=== PATIENT | female | born 1960 | race Caucasian/White ===

== ENCOUNTER → 2020-08-27 08:53 | Outpatient (CLI) | payer OTHER, SELFPAY ==
--- NOTE | 2020-08-27 08:58 | DI.ECHO.S_ITS ---
[facility]---------+ [facility] +---------+ : : [address] : : : : [id number] : : : : Phone: [phone] Echocardiogram Report + + :Name: BENJY ESPINOZA Study Date: 08/27/2020 Height: 70 in : :[facility] ReadingLocation: Weight: 185 lb : : Gender: Female BSA: 2.0 m2 : :: 1960 Age: 59 yrs BP: 129/100 mmHg: :Reason For Study: Atrial fibrillation : :Ordering Physician: Oriana : :Dede Ballesteros Performed By: Vikas Hansen : :Referring: ORIANA BALLESTEROS : + + Interpretation Summary 1) Normal left ventricular thickness, size, wall motion, and systolic function (EF 55-60%). 2) Normal right ventricular size and function. 3) No significant valvular abnormalities. 4) No prior Echo available for comparison. Procedure: A two-dimensional transthoracic echocardiogram with color flow and Doppler was performed. The study quality was technically adequate. There is no prior echocardiogram noted for this patient. The patient was in sinus rhythm with heart rates between 65-73 bpm during the exam. Left Ventricle: The left ventricle is normal in size and wall thickness. Left ventricular systolic function is normal. The ejection fraction is estimated to be 55-60%. There are no focal wall motion abnormalities. Diastolic parameters suggest probable normal left ventricular diastolic function and normal filling pressures. Right Ventricle: The right ventricle is normal in size and function. Atria: Both atria are normal in size. There is no Doppler evidence for an interatrial shunt. Mitral Valve: The mitral valve is normal in structure and function. There is trace mitral regurgitation. Aortic Valve: The aortic valve is normal in structure and function. There is no aortic valve stenosis. No aortic regurgitation is present. Tricuspid Valve: The tricuspid valve is normal in structure and function. There is mild tricuspid regurgitation. The right ventricular systolic pressure is estimated to be at least 26 mmHg based on an estimated right atrial pressure of 3 mm Hg. Pulmonic Valve: The pulmonic valve is not well seen, but is grossly normal. There is a trace or physiologic amount of pulmonic regurgitation. Great Vessels: The aortic root is normal size. The dimensions of the ascending aorta are normal. The IVC is of normal diameter and collapses greater than 50% with a sniff. This suggests a low right atrial pressure of 3 mm Hg. Pericardium/ Pleura There is no pericardial effusion. There is no pleural effusion. MMode/2D Measurements & Calculations LVIDd: 5.2 cm LVOT diam: 2.1 cm LVIDs: 3.3 cm Ao root diam: 3.1 cm FS: 36.5 % asc Aorta Diam: 3.3 cm IVSd: 0.75 cm LVPWd: 0.71 cm LV dowd. diameter/BSA (cm/m^2): 2.6 LV sys. diameter/BSA (cm/m^2): 1.6 LA A2 area: 19.2 cm2 RA long axis: 5.4 cm LA A4 area: 18.5 cm2 RA area: 17.4 cm2 LA length (vol): 5.5 cm RA vol: 48.1 ml LA vol: 55.2 ml RA : 23.8 ml/m2 LA vol index: 27.3 ml/m2 TAPSE: 2.0 cm Doppler Measurements & Calculations Ao V2 max: 111.6 cm/sec LVOT Max Bk: 100.8 cm/sec Ao V2 mean: 78.2 cm/sec LV V1 max P.1 mmHg Ao max P.0 mmHg LV V1 VTI: 18.9 cm Ao mean P.7 mmHg LIA(I,D): 2.9 cm2 Ao V2 VTI: 21.9 cm LIA(V,D): 3.0 cm2 sev ratio: 0.86 LIA indexed to BSA (cm^2/m^2): 1.4 MV E max bk: 80.3 cm/sec TR max bk: 238.7 cm/sec MV A max bk: 52.3 cm/sec TR max P.8 mmHg MV E/A: 1.5 PA pr(Accel): 49.9 mmHg Med Peak E' Bk: 10.3 cm/sec E/E' med: 7.8 Lat Peak E' Bk: 11.8 cm/sec E/E' lat: 6.8 E/e' average: 7.3 MV dec time: 0.21 sec SV(LVOT): 63.0 ml Reading Physician:10:12 AM
== END ==
PROVIDERS: PCP Family Medicine; Referring Provider Internal Medicine Cardiovascular Disease; Visit Provider Internal Medicine Cardiovascular Disease
DX: I48.19 Other persistent atrial fibrillation (principal); I07.1 Rheumatic tricuspid insufficiency
CPT/HCPCS: 93306

== ENCOUNTER 2020-09-28 10:09 | Emergency (ER) | payer OTHER, SELFPAY ==
[2020-09-28] VITALS (31 sets, daily range): BP systolic 111–148; BP diastolic 58–95; PULSE 72–155; RESP 12–42; TEMP 36.2; O2SAT 83–100
--- NOTE | 2020-09-28 10:37 | DI.RAD.S_ITS ---
PROCEDURE: XR CHEST 1V INDICATIONS: chest pain TECHNIQUE: One view of the chest was acquired. COMPARISON: None. FINDINGS: Surgical changes and devices: None. Lungs and pleura: Lungs are clear. No pleural effusions or pneumothorax. Mediastinum: Mediastinal contours appear normal. Heart size is normal. Bones and chest wall: No suspicious bony lesions. Overlying soft tissues appear unremarkable. IMPRESSION: No acute cardiopulmonary disease. Dictated by: Isiah Duong M.D. on 09/28/2020 at 11:25 Approved by: Isiah Duong M.D. on 09/28/2020 at 11:26
[2020-09-28 10:48] LABS: Add Manual Diff / Slide Review NO; Basophils Absolute Auto 100 /uL (0-100); Eosinophils Absolute Auto 200 /uL (0-450); Eosinophils Percent Auto 2.7 % (2-4); Hemoglobin 15.6 g/dL (12.0-16.0); Lymphocytes Absolute Auto 2000 /uL (1100-4500); Lymphocytes Percent Auto 31.5 % (25-40); Mean Corpuscular HGB Conc 33.3 % (30-36); Mean Corpuscular Hemoglobin 32.9 PG (26-34); Monocytes Absolute Auto 500 /uL (0-900); Monocytes Percent Auto 8.7 % (3-14); Neutrophils Absolute Auto 3500 /uL (1500-7000); Neutrophils Percent Auto 56.1 % (50-75); Platelet Count 385 X10^3/uL (150-400); Red Blood Cell Count 4.75 X10^6/uL (4.0-5.2); Red Cell Distribution Width 13.3 % (11.6-14.8); White Blood Cell Count 6.3 X10^3/uL (4.5-11.0)
[2020-09-28 10:52] LABS: Alanine Aminotransferase 31 IU/L (<35); Albumin 4.9 g/dL (3.5-5.0); Albumin Globulin Ratio 1.4 (1.0-2.8); Alkaline Phosphatase 108 U/L (38-126); Aspartate Aminotransferase 43 IU/L (14-36); BUN Creatinine Ratio 17.7 (6-22); Blood Urea Nitrogen 14 mg/dL (7-17); Carbon Dioxide 26 mmol/L (22-32); Chloride 102 mmol/L (98-107); Creatine Kinase 55 U/L (30-135); Estimated Glomerular Filt Rate > 60.0 mL/min (>60); Globulin 3.4 g/dL (1.7-4.1); Glucose 113 mg/dL (80-110); HEMOLYSIS < 15 (0-50); Lipase 163 U/L (23-300); Magnesium 2.3 mg/dL (1.6-2.3); Potassium 4.1 mmol/L (3.4-5.1); Sodium 139 mmol/L (137-145); Total Protein 8.3 g/dL (6.3-8.2)
[2020-09-28 11:04] LABS: NT-proBNP (BNP-Adult 18+) 2020 pg/mL (<125); Troponin I < 0.012 ng/mL (0.01-0.034)
[2020-09-28] MEDS: ASPIRIN 81 MG CHEW TAB 324 MG PO (11:19)
[2020-09-28] MEDS: SODIUM CHLORIDE 0.9% 1,000 ML 1000 ML IV (11:19)
[2020-09-28 11:26] LABS: TSH w/ Reflex to FT4 0.53 uIU/mL (0.47-4.68)
--- NOTE | 2020-09-28 12:13 | ED.ARRPALP ---
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 Patient went to sleep open she would cardiovert overnight but continued to have an elevated heart rate. She noted she felt a little bit of chest pressure and shortness of breath particularly when she is walking around. She felt lightheadedness had possible near syncopal episode but no syncope. She denies any new swelling in her extremities. She denies any diaphoresis, no nausea vomiting or other GI or urinary symptoms. Patient states she had her diltiazem increased from 180 mg to 240 in the last 2 months. She also notes that she had a resection in the past month for a volvulus. During that episode she did not have any atrial fibrillation events. Patient states she typically gets an event once every 3 months she has had 2 in the last 3 months. 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 She denies any other new medication changes. She is allergic to Pradaxa and has anaphylactic type symptoms. She is also allergic to sulfa. She denies any tobacco, rare alcohol no illicit. Dr. Ballesteros is her speeder frame tender. Related Data Allergies Allergy/AdvReac Type Severity Reaction Status Date / Time dabigatran etexilate Allergy Verified 09/28/20 11:54 [From Pradaxa] Sulfa (Sulfonamide Allergy Verified 09/28/20 11:54 Antibiotics) Review of Systems Review of Systems ROS Unobtainable: All systems reviewed & are unremarkable except as noted in HPI and below Patient History Social History Smoking Status: Current some day smoker Smoking Status: Current some day smoker tobacco type: cigarettes alcohol intake frequency: 0-2 drinks per day Substance Use Type: does not use Exam Narrative Exam Narrative: GENERAL: Alert and oriented x three, well-appearing female in mild distress. HEENT: Head normocephalic, atraumatic, EOMI, pupils reactive, face symmetric, moist mucous membranes NECK: Supple, full range of motion CARDIOVASCULAR: Started irregularly regular rate and rhythm without murmurs, rubs or gallops. No JVD. No swelling bilateral lower extremities. RESPIRATORY: Breath sounds equal bilaterally, no wheezes rales or rhonchi. No tachypnea accessory muscle use. ABDOMEN: Soft, nontender. Normoactive bowel sounds all 4 quadrants. No guarding or rebound, rigidity, no mass : No CVA tenderness EXTREMITIES: Normal range of motion, no clubbing or edema. Neurovascularly intact NEUROLOGICAL: Cranial nerves II through XII grossly intact. Moving all extremities SKIN: Warm, dry, no petechiae, no rashes or lesions. Initial Vital Signs Initial Vital Signs: Vital Signs Temperature 97.1 F L 09/28/20 10:25 Pulse Rate 155 H 09/28/20 10:25 Respiratory Rate 22 09/28/20 10:25 Blood Pressure 111/78 09/28/20 10:25 Pulse Oximetry 99 09/28/20 10:25 Scores GCS Aristeo coma scale eye opening: Spontaneous Aristeo coma scale verbal response: Orientated Aristeo coma scale motor response: Obey commands Aristeo coma scale total score: 15 Course Orders Ordered: ED Orders 09/28/20 13:15 D Dimer Stat 09/28/20 14:15 CT angio chest PE protocol Stat 09/28/20 15:10 COVID19 - ADMIT (ASSET PROTECTION MANAGER swab/PCR) Stat 09/28/20 17:49 EKG-12 Lead Stat Discontinued Medications Aspirin (Aspirin 81 Mg Chew Tab) 324 mg PO NOW ONE Stop: 09/28/20 10:37 Last Admin: 09/28/20 11:19 Dose: 324 mg Documented by: CTRKATERINA Diltiazem HCl (Diltiazem 5 Mg/Ml Sdv) 10 mg IV NOW ONE Stop: 09/28/20 12:48 Last Admin: 09/28/20 12:53 Dose: 10 mg Documented by: TYLOR Enoxaparin Sodium (Enoxaparin 100 Mg/Ml Syringe) 83 mg SUBCUT NOW ONE Stop: 09/28/20 15:46 Last Admin: 09/28/20 15:42 Dose: 83 mg Documented by: TYLOR Flecainide Acetate (Flecainide 100 Mg Tablet) 100 mg PO NOW ONE Stop: 09/28/20 16:31 Last Admin: 09/28/20 16:46 Dose: 100 mg Documented by: CTR.CALLI Sodium Chloride (Normal Saline 0.9%) 1,000 mls @ 1,000 mls/hr IV BOLUS ONE Stop: 09/28/20 11:36 Last Infusion: 09/28/20 12:38 Dose: 0 mls/hr Documented by: CTR.CALLI Admin: 09/28/20 11:19 Dose: 1,000 mls/hr Documented by: CTR.CALLI Sodium Chloride (Normal Saline 0.9%) 1,000 mls @ 150 mls/hr IV CONT JARED Last Infusion: 09/28/20 18:42 Dose: 0 mls/hr Documented by: CTR.CALLI Admin: 09/28/20 12:56 Dose: 150 mls/hr Documented by: CTR.CALLI Diltiazem HCl 125 mg/ Sodium (Chloride) 125 mls @ 5 mls/hr IV TITRATE JARED; Protocol Last Titration: 09/28/20 18:42 Dose: 0 mg/hr, 0 mls/hr Documented by: CTR.CALLI Admin: 09/28/20 14:47 Dose: 5 mg/hr, 5 mls/hr Documented by: CTR.CALLI Consultations Consultation #1: Dr. Ballesteros, recommend increasing patient's diltiazem to 360 mg daily as an outpatient. Recommends dose of Lovenox 1 floresita per kg subcutaneously. Adding flecainide 100 mg. He will also send a prescription for Eliquis to [facility]'s for the patient. If patient does not cardiovert after flecainide given here in the department 1 hour after Lovenox he would recommend electrical cardioversion. Vital Signs Vital signs: Vital Signs - 8 hr 09/28/20 12:46 09/28/20 13:00 09/28/20 13:15 Pulse Rate 122 H 111 H 90 Respiratory Rate 12 22 17 Blood Pressure 126/73 127/68 125/73 Pulse Oximetry 100 100 99 09/28/20 13:30 09/28/20 13:45 09/28/20 14:00 Pulse Rate 89 98 H 105 H Respiratory Rate 20 13 19 Blood Pressure 120/70 135/83 Pulse Oximetry 99 99 99 09/28/20 14:15 09/28/20 14:37 09/28/20 14:38 Pulse Rate 109 H 113 H 116 H Respiratory Rate 12 27 H Blood Pressure 137/77 143/95 H Pulse Oximetry 100 85 L 93 09/28/20 14:45 09/28/20 15:00 09/28/20 15:01 Pulse Rate 143 H 121 H 127 H Respiratory Rate 13 12 14 Blood Pressure 137/63 138/69 Pulse Oximetry 100 100 96 09/28/20 15:15 09/28/20 15:30 09/28/20 15:46 Pulse Rate 124 H 116 H 120 H Respiratory Rate 31 H 25 H 42 H Blood Pressure 120/63 120/66 131/67 Pulse Oximetry 99 99 99 09/28/20 16:00 09/28/20 16:15 09/28/20 16:30 Pulse Rate 113 H 117 H 115 H Respiratory Rate 14 13 15 Blood Pressure 130/71 133/80 138/84 Pulse Oximetry 99 99 99 09/28/20 16:45 09/28/20 17:00 09/28/20 17:01 Pulse Rate 116 H 124 H 123 H Respiratory Rate 24 20 16 Blood Pressure 141/64 H 148/83 H Pulse Oximetry 98 98 99 09/28/20 17:15 09/28/20 17:30 09/28/20 17:45 Pulse Rate 117 H 119 H 121 H Respiratory Rate 17 12 19 Blood Pressure 124/58 L 120/64 139/73 Pulse Oximetry 99 98 93 09/28/20 18:00 09/28/20 18:01 09/28/20 18:15 Pulse Rate 72 74 73 Respiratory Rate 28 H 27 H 23 Blood Pressure 120/72 119/70 Pulse Oximetry 98 99 98 MDM - Arrhythmia/Palpitations Lab Data Attestation: I reviewed the patient's lab results. Result diagrams: 09/28/20 10:25 09/28/20 10:25 Labs: Lab Results 09/28/20 09/28/20 09/28/20 Range/Units 10:25 10:25 10:25 WBC 6.3 (4.5-11.0) X10^3/uL RBC 4.75 (4.0-5.2) X10^6/uL Hgb 15.6 (12.0-16.0) g/dL Hct 47.0 H (36-46) % MCV 99.0 (80-100) fL MCH 32.9 (26-34) PG MCHC 33.3 (30-36) % RDW 13.3 (11.6-14.8) % Plt Count 385 (150-400) X10^3/uL Neut % (Auto) 56.1 (50-75) % Lymph % (Auto) 31.5 (25-40) % [place] % (Auto) 8.7 (3-14) % Eos % (Auto) 2.7 (2-4) % Baso % (Auto) 1.0 (0-2) % Neut # (Auto) 3500 (6967-4367) /uL Lymph # (Auto) 2000 (6159-2730) /uL [place] # (Auto) 500 (0-900) /uL Eos # (Auto) 200 (0-450) /uL Baso # (Auto) 100 (0-100) /uL D-Dimer (<230) ng/mL Sodium 139 (137-145) mmol/L Potassium 4.1 (3.4-5.1) mmol/L Chloride 102 (98-107) mmol/L Carbon Dioxide 26 (22-32) mmol/L BUN 14 (7-17) mg/dL Creatinine 0.79 (0.52-1.04) mg/dL Estimated GFR > 60.0 (>60) mL/min BUN/Creatinine Ratio 17.7 (6-22) Glucose 113 H (80-110) mg/dL Calcium 10.0 (8.4-10.2) mg/dL Magnesium 2.3 (1.6-2.3) mg/dL Total Bilirubin 1.0 (0.2-1.3) mg/dL AST 43 H (14-36) IU/L ALT 31 (<35) IU/L Alkaline Phosphatase 108 (38-126) U/L Total Creatine Kinase 55 (30-135) U/L CK-MB (CK-2) TNP CK-MB (CK-2) Rel Index TNP Troponin I < 0.012 (0.01-0.034) ng/mL NT-Pro-B Natriuret Pep 2020 H (<125) pg/mL Total Protein 8.3 H (6.3-8.2) g/dL Albumin 4.9 (3.5-5.0) g/dL Globulin 3.4 (1.7-4.1) g/dL Albumin/Globulin Ratio 1.4 (1.0-2.8) Lipase 163 (23-300) U/L TSH 0.53 (0.47-4.68) uIU/mL SARS-CoV-2 (PCR) (Negative) 09/28/20 09/28/20 Range/Units 13:15 15:10 WBC (4.5-11.0) X10^3/uL RBC (4.0-5.2) X10^6/uL Hgb (12.0-16.0) g/dL Hct (36-46) % MCV (80-100) fL MCH (26-34) PG MCHC (30-36) % RDW (11.6-14.8) % Plt Count (150-400) X10^3/uL Neut % (Auto) (50-75) % Lymph % (Auto) (25-40) % [place] % (Auto) (3-14) % Eos % (Auto) (2-4) % Baso % (Auto) (0-2) % Neut # (Auto) (0653-8738) /uL Lymph # (Auto) (3527-0457) /uL [place] # (Auto) (0-900) /uL Eos # (Auto) (0-450) /uL Baso # (Auto) (0-100) /uL D-Dimer 659 H (<230) ng/mL Sodium (137-145) mmol/L Potassium (3.4-5.1) mmol/L Chloride (98-107) mmol/L Carbon Dioxide (22-32) mmol/L BUN (7-17) mg/dL Creatinine (0.52-1.04) mg/dL Estimated GFR (>60) mL/min BUN/Creatinine Ratio (6-22) Glucose (80-110) mg/dL Calcium (8.4-10.2) mg/dL Magnesium (1.6-2.3) mg/dL Total Bilirubin (0.2-1.3) mg/dL AST (14-36) IU/L ALT (<35) IU/L Alkaline Phosphatase (38-126) U/L Total Creatine Kinase (30-135) U/L CK-MB (CK-2) CK-MB (CK-2) Rel Index Troponin I (0.01-0.034) ng/mL NT-Pro-B Natriuret Pep (<125) pg/mL Total Protein (6.3-8.2) g/dL Albumin (3.5-5.0) g/dL Globulin (1.7-4.1) g/dL Albumin/Globulin Ratio (1.0-2.8) Lipase (23-300) U/L TSH (0.47-4.68) uIU/mL SARS-CoV-2 (PCR) Negative (Negative) Urine Dip Bedside Urine Glucose Negative Bedside Urine Bilirubin - Negative Bedside Urine Ketone - Negative Urine Specific [place] 1.015 Bedside Urine Occult Blood +/- Bedside Urine pH 6 Bedside Urine Protein - Negative Bedside Urine Urobilinogen - Negative Bedside Urine Nitrite - Negative Bedside Urine Leukocytes - Negative Esterase Imaging Data Chest x-ray: Radiologist's Impresson: [address] [id number] ReportSigned Patient: Aissatou Lynch AMR#: [id number]: 1960cct:[id number]/Sex: 60 / FDate of Service: 09/28/20Loc: EDAccession Number: [id number] Procedure: XR chest 1V Ordering Provider: Galina Orta D.O. PROCEDURE: XR CHEST 1V INDICATIONS: chest pain TECHNIQUE: One view of the chest was acquired. COMPARISON: None. FINDINGS: Surgical changes and devices: None. Lungs and pleura: Lungs are clear. No pleural effusions or pneumothorax. Mediastinum: Mediastinal contours appear normal. Heart size is normal. Bones and chest wall: No suspicious bony lesions. Overlying soft tissues appear unremarkable. IMPRESSION: No acute cardiopulmonary disease. Dictated by: Isiah Duong M.D. on 09/28/2020 at 11:25 Approved by: Isiah Duong M.D. on 09/28/2020 at 11:26 CT scan - chest: Radiologist's Impresson: [address] [id number] Scan ReportSigned Patient: Aissatou Lynch AMR#: [id number]: 9Acct:[id number]/Sex: 60 / FDate of Service: 09/28/20Lo: EDAccession Number: [id number] Procedure: CT angio chest PE protocol Ordering Provider: Galina Orta D.O. PROCEDURE: CT ANGIO CHEST PE PROTOCOL INDICATIONS: afib with RVR. resection 1 month ago. TECHNIQUE: After the administration of intravenous contrast, 2 mm thick sections acquired from the pulmonary apices to the posterior costophrenic angles. 3-dimensional maximum intensity projection (MIP) coronal and sagittal reformats were then acquired through the thorax. For radiation dose reduction, the following was used: automated exposure control, adjustment of mA and/or kV according to patient size. COMPARISON: None. FINDINGS: Lungs: Scattered subsegmental atelectasis and/or scarring. No focal consolidation. Airway thickening in keeping with nonspecific bronchitis and/or reactive airways disease. Pleura: No pleural effusion or pneumothorax. Heart: Left atrial enlargement. No pericardial effusion. Chest nodes: Normal. Thyroid gland: Not seen Aorta: Normal in size. Pulmonary arteries: Normal. No intraluminal filling defects. Esophagus: Small hiatal hernia Upper abdomen: Status post cholecystectomy. Bones: Mild spondylitic changes. IMPRESSION: No evidence of pulmonary embolism. Scattered subsegmental atelectasis and/or scarring. No focal consolidation. Small hiatal hernia. Dictated by: Nasir Salvador M.D. on 09/28/2020 at 14:49 Approved by: Nasir Salvador M.D. on 09/28/2020 at 14:55 ECG Data Attestation: I personally reviewed and interpreted this ECG as follows: Prior ECG tracings: not available for review Interpretation: tachycardic, rate of 152, IN 112 QRS 82 and QTC of 502. Patient has some possible depression in V4 through V6. No elevation noted. EKG 2. Shows AFib with RVR with a rate of 116 QRS [address] segment depression appears resolved. No acute elevation noted. Patient does not have priors available for review other than from today EKG 3. Shows sinus rhythm rate of 75 P are 146 QRS of 90 QTC 451. No acute change appreciated. MDM Narrative Medical decision making narrative: This is a pleasant 60-year-old female comes emergency department with acute onset of AFib with RVR. She has not had any new exacerbating factors recently. Patient's heart rate was slowly improving with fluids but she continued to maintain 1 teens regularly. She was given a dose of Cardizem and they are in the department improved to 90 to 100 range but intermittently bump up to 120s. Her symptoms had improved as her heart rate slowed but she continued to be in AFib. Patient takes aspirin and has intermittent episodes. Labs showed a negative troponin, she did have an elevated BNP although clinically appears more dry. Is also noted that patient had a surgery a month D-dimer was included which was elevated so CT angiography was included which is negative for PE any pulmonary edema. Patient case was discussed with her personal speeder frame tender Dr. Ballesteros does recommend anticoagulating with Lovenox here in the department wait 1 hour and then, 100 mg dose of flecainide waiting an hour and if patient has not cardioverted attempting electrical cardioversion. Patient successfully cardioverted almost an hour after she had flecainide. Dr. Ballesteros also had contacted the patient he is going to increase her diltiazem from 240 mg to 360 mg have her take flecainide daily and start her on Eliquis. [facility] were sent to [facility] by Dr. Ballesteros. Patient and are aware and comfortable with this plan. Discharge Plan Departure Patient Disposition: Home Clinical Impression: Atrial fibrillation with RVR Instructions: DI for Arrhythmias Activity Restrictions/Additional Instructions: Dr. Ballesteros is going to call in a prescription to start Eliquis for anticoagulation. He also recommends increasing your diltiazem to 360 mg daily and starting flecainide. These have been sent to [facility] in [place] by Dr. Ballesteros Follow up with your Wool Grader in the next week. Call for an appointment tomorrow. Please return for new or recurrent symptoms, worsening shortness of breath, chest pain or pressure, recurrent tachycardia or fast heartbeat, lightheadedness or passing out, new swelling in her extremities or other new or concerning symptoms. Referrals: Polo Capone MD [Primary Care Provider] -
[2020-09-28] MEDS: dilTIAZem 5 MG/ML SDV 10 MG IV (12:53)
[2020-09-28] MEDS: SODIUM CHLORIDE 0.9% 1,000 ML 150 ML IV (12:56)
[2020-09-28 13:50] LABS: D Dimer 659 ng/mL (<230)
--- NOTE | 2020-09-28 14:15 | DI.CT.S_ITS ---
PROCEDURE: CT ANGIO CHEST PE PROTOCOL INDICATIONS: afib with RVR. resection 1 month ago. TECHNIQUE: After the administration of intravenous contrast, 2 mm thick sections acquired from the pulmonary apices to the posterior costophrenic angles. 3-dimensional maximum intensity projection (MIP) coronal and sagittal reformats were then acquired through the thorax. For radiation dose reduction, the following was used: automated exposure control, adjustment of mA and/or kV according to patient size. COMPARISON: None. FINDINGS: Lungs: Scattered subsegmental atelectasis and/or scarring. No focal consolidation. Airway thickening in keeping with nonspecific bronchitis and/or reactive airways disease. Pleura: No pleural effusion or pneumothorax. Heart: Left atrial enlargement. No pericardial effusion. Chest nodes: Normal. Thyroid gland: Not seen Aorta: Normal in size. Pulmonary arteries: Normal. No intraluminal filling defects. Esophagus: Small hiatal hernia Upper abdomen: Status post cholecystectomy. Bones: Mild spondylitic changes. IMPRESSION: No evidence of pulmonary embolism. Scattered subsegmental atelectasis and/or scarring. No focal consolidation. Small hiatal hernia. Dictated by: Nasir Salvador M.D. on 09/28/2020 at 14:49 Approved by: Nasir Salvador M.D. on 09/28/2020 at 14:55
[2020-09-28] MEDS: dilTIAZem 125 MG in SODIUM CHLORIDE 0.9% 100 ML IV (14:47)
[2020-09-28] MEDS: ENOXAPARIN 100 MG/ML SYRINGE 83 MG SUBCUT (15:42)
[2020-09-28 16:19] LABS: COVID19 - ADMIT (NP swab/PCR) Negative (Negative)
[2020-09-28] MEDS: FLECAINIDE 100 MG TABLET PO (16:46)
== END 2020-09-28 18:44 | disposition home or self-care (01) ==
PROVIDERS: Emergency Provider Emergency Medicine; PCP Family Medicine
DX: I48.20 Chronic atrial fibrillation, unspecified (principal); R07.9 Chest pain, unspecified; R06.02 Shortness of breath; Z20.822 Contact with and (suspected) exposure to COVID-19
CPT/HCPCS: 36415; 71045; 71275; 80053; 81003; 82550; 83690; 83735; 83880; 84443; 84484; 85025; 85379; 87635; 93005; 93010; 96361; 96365; 96366; 96372; 96375; 99284; C9803; J1650; Q9967